=== PATIENT | female | born 1970 | race Caucasian/White ===

== ENCOUNTER 2016-07-31 19:01 | Emergency (ER) ==
--- NOTE | 2016-07-31 20:07 | PROVIDER DOCUMENTATION ---
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 PT STATES WEAKNESS AND NAUSEA WITH NO VOMITING.PT STATES TODAY SX HAVE BEEN PRESENT ALL DAY. PT STATES SHE DID HAVE A ALLERGY SHOT YESTERDAY AROUND 16:30. PT STATES SHE HAS HAD THE SHOT BEFORE WITH NO PROBLEMS. Location of Pain/Injury: reports: generalized Pain Radiation: reports: no radiation Quality of Pain: reports: pressure (HEAVY CHEST) Severity: reports: moderate Onset/Duration: reports: 24 hours ago Timing: reports: still present Context/Activities at Onset: reports: none Modifying Factors: improves with: nothing Associated Symptoms: reports: anxiety, other (HEAVINESS OF CHEST) Similar Symptoms Previously?: No Recently seen or treated by another doctor?: No <Isidro Herrmann - Last Filed: 07/31/16 21:09> <Chivo Doshi - Last Filed: 07/31/16 21:57> - General Chief Complaint: Weakness Stated Complaint: WEAKNESS, DIZZY, NAUSEA Time Seen by Provider: 07/31/16 19:35 Allergies/Adverse Reactions: Patient Allergies Allergy/AdvReac Type Severity Reaction Status Date / Time acetaminophen [From Lortab] AdvReac SHORTNESS Verified 12/24/15 15:41 OF BREATH celecoxib [From Celebrex] AdvReac Unknown Verified 12/24/15 15:41 hydrocodone bitartrate * AdvReac SHORTNESS Verified 12/24/15 15:41 [From Lortab] OF BREATH prednisone AdvReac Unknown Verified 12/24/15 15:41 Tetracyclines AdvReac SHORTNESS Verified 12/24/15 15:41 OF BREATH Home Medications: Home Medication List Medication Instructions Recorded Confirmed Last Taken Type Clonazepam [Klonopin] 1 mg PO DIRECTED 03/17/15 07/31/16 12/25/15 07:00 History Cephalexin [Keflex] 500 mg PO BID 07/31/16 07/31/16 Unknown History Review of Systems - Adult - REVIEW OF SYSTEMS - ADULT Constitutional: denies: chills, fever Eyes: reports: no symptoms reported Ears, Nose, Mouth & Throat: reports: no symptoms reported Cardiovascular: reports: chest pain (HEAVINESS), palpitations. denies: syncope Respiratory: reports: shortness of breath. denies: cough, wheezing Gastrointestinal: reports: nausea. denies: abdominal pain, diarrhea, vomiting Genitourinary: reports: no symptoms reported Musculoskeletal: denies: back pain, neck pain Integumentary: reports: no symptoms reported Neurological: denies: dizziness/vertigo, headache/migraines, syncope Psychiatric: reports: no symptoms reported Endocrine: reports: no symptoms reported Hematologic/Lymphatic: reports: no symptoms reported Allergic/Immunologic: reports: no symptoms reported All Other Systems: Reviewed and Negative <Isidro Herrmann - Last Filed: 07/31/16 21:09> Past History - Adult - PAST MEDICAL HISTORY-ADULT Review of Records: reports: Nursing Assessment Review, Medications Reviewed Gastrointestinal: reports: GERD Genitourinary: reports: dialysis Endocrine/Immune: reports: thyroid disorder - PRIOR SURGERIES/PROCEDURES Surgical/Procedure History: reports: reviewed, not pertinent - IMMUNIZATION STATUS Childhood Immunizations: See Nurse Assessment Flu Vaccine: See Nurse Assessment - FAMILY HISTORY Family History: reviewed, not pertinent - SOCIAL HISTORY Smoking: quit greater than 1 year, cigarettes Substance Use: alcohol Alcohol Use Frequency: occasionally Number of drinks per typical drinking period:: 3-4 drinks Living Situation: family <Isidro Herrmann Last Filed: 07/31/16 21:09> Physical Exam-General - CONSTITUTIONAL General Appearance: alert, mild distress - EYES Eyes: PERRL/EOMI, pink conjunctivae - HEAD, EARS, NOSE, MOUTH & THROAT HENMT: normocephalic/atraumatic, moist mucous membranes - NECK Neck: non-tender, full range of motion, supple - RESPIRATORY Respiratory: chest non-tender, lungs clear, normal breath sounds - CARDIOVASCULAR Cardiovascular: normal peripheral pulses, regular rate, rhythm - GASTROINTESTINAL (ABDOMEN) Abdominal Exam: normal bowel sounds, non tender, soft - LYMPHATIC Lymphatic: no adenopathy - MUSCULOSKELETAL Back Exam: normal inspection, no CVA tenderness, no vertebral tenderness Extremity: normal range of motion, non-tender - SKIN Integumentary: normal color, normal turgor, warm/dry - NEUROLOGIC Neurologic: grossly normal - PSYCHIATRIC Psych/Mental Status: oriented x 3 <MontezIsidro - Last Filed: 07/31/16 21:09> Progress - PLAN OF CARE/RESULTS Progress/Plan/Lab Results: Laboratory Tests 07/31/16 07/31/16 07/31/16 20:15 20:15 20:15 WBC 6.35 RBC 4.71 Hgb 14.4 Hct 43.1 MCV 91.5 MCH 30.6 MCHC 33.4 RDW Std Deviation 13.2 Plt Count 292 MPV 9.8 Immature Gran % (Auto) 0.0 Neut % (Auto) 57.8 Lymph % (Auto) 27.9 [place] % (Auto) 10.7 H Eos % (Auto) 2.2 Baso % (Auto) 1.4 H Immature Gran # (Auto) 0.00 Neut # (Auto) 3.67 Lymph # (Auto) 1.77 [place] # (Auto) 0.68 H Eos # (Auto) 0.14 Baso # (Auto) 0.09 PT INR PTT (Actin FS) D-Dimer 0.26 Sodium 143 Potassium 3.7 Chloride 105 Carbon Dioxide 29 Anion Gap 9 BUN 17 Creatinine 0.7 Estimated GFR/1.73 m2 > 60 BUN/Creatinine Ratio 24 Glucose 90 Calculated Osmolality 286 Calcium 9.0 Magnesium 2.1 Total Bilirubin 0.26 AST 18 ALT 15 Alkaline Phosphatase 120 H Creatine Kinase 79 Troponin T Wly-N-Vfcfzfhfrqs Pept Total Protein 7.1 Albumin 4.0 Globulin 3.1 Albumin/Globulin Ratio 1.3 07/31/16 07/31/16 07/31/16 20:15 20:15 20:15 WBC RBC Hgb Hct MCV MCH MCHC RDW Std Deviation Plt Count MPV Immature Gran % (Auto) Neut % (Auto) Lymph % (Auto) [place] % (Auto) Eos % (Auto) Baso % (Auto) Immature Gran # (Auto) Neut # (Auto) Lymph # (Auto) [place] # (Auto) Eos # (Auto) Baso # (Auto) PT 9.9 INR 0.97 PTT (Actin FS) 25.1 D-Dimer Sodium Potassium Chloride Carbon Dioxide Anion Gap BUN Creatinine Estimated GFR/1.73 m2 BUN/Creatinine Ratio Glucose Calculated Osmolality Calcium Magnesium Total Bilirubin AST ALT Alkaline Phosphatase Creatine Kinase Troponin T < 0.010 Sry-L-Dorodfwqzsv Pept 119 Total Protein Albumin Globulin Albumin/Globulin Ratio Orders Category Date Time Status Cardiac Monitoring DIRECTED Care 07/31/16 19:58 Active Saline Loc NOW Care 03/09/17 19:58 Active CHEST-2 VIEWS [RAD] Stat Exams 07/31/16 19:58 Taken CBC WITH ELECTRONIC DIFF [HEME] Stat Lab 07/31/16 20:15 Completed CK PROFILE [SP CHEM] Stat Lab 07/31/16 20:15 Completed COMPREHENSIVE METABOLIC PANEL [CHEM] Stat Lab 07/31/16 20:15 Completed D-DIMER [CHEM] Stat Lab 07/31/16 20:15 Completed MAGNESIUM [CHEM] Stat Lab 07/31/16 20:15 Completed PRO B-NATRIURETIC PEPTIDE Stat Lab 07/31/16 20:15 Completed PROTIME WITH INR [COAG] Stat Lab 07/31/16 20:15 Completed PTT [COAG] Stat Lab 07/31/16 20:15 Completed TROPONIN T Stat Lab 07/31/16 20:15 Completed 0.9% Sodium Chloride Inj [Ns] 1,000 ml Med 07/31/16 20:24 Active IV 999 mls/hr EKG [EKG] Stat Ther 07/31/16 19:18 Ordered Vital Signs - 24 hr 07/31/16 19:13 Temperature 97.8 F Pulse Rate 62 Respiratory 16 Rate Blood Pressure 124/60 O2 Sat by Pulse 100 Oximetry - EKG 1 Time of EKG reading by physician:: 19:31 EKG Read and Signed by:: Sourav Crenshaw EKG Interpretation (*Must complete 3 of following elements*): Normal Rate: 61 Rhythm: NSR [place]: normal QRS: normal IA Interval: normal ST Wave: normal - XRAY 1 XRAY: Bilateral XRAY Study: Chest XRAY Interpretation: NAD <Isidro Herrmann - Last Filed: 07/31/16 21:09> - PLAN OF CARE/RESULTS Progress/Plan/Lab Results: Laboratory Tests 07/31/16 07/31/16 07/31/16 20:15 20:15 20:15 WBC 6.35 RBC 4.71 Hgb 14.4 Hct 43.1 MCV 91.5 MCH 30.6 MCHC 33.4 RDW Std Deviation 13.2 Plt Count 292 MPV 9.8 Immature Gran % (Auto) 0.0 Neut % (Auto) 57.8 Lymph % (Auto) 27.9 [place] % (Auto) 10.7 H Eos % (Auto) 2.2 Baso % (Auto) 1.4 H Immature Gran # (Auto) 0.00 Neut # (Auto) 3.67 Lymph # (Auto) 1.77 [place] # (Auto) 0.68 H Eos # (Auto) 0.14 Baso # (Auto) 0.09 PT INR PTT (Actin FS) D-Dimer 0.26 Sodium 143 Potassium 3.7 Chloride 105 Carbon Dioxide 29 Anion Gap 9 BUN 17 Creatinine 0.7 Estimated GFR/1.73 m2 > 60 BUN/Creatinine Ratio 24 Glucose 90 Calculated Osmolality 286 Calcium 9.0 Magnesium 2.1 Total Bilirubin 0.26 AST 18 ALT 15 Alkaline Phosphatase 120 H Creatine Kinase 79 Troponin T Fwb-W-Mjcnyifufon Pept Total Protein 7.1 Albumin 4.0 Globulin 3.1 Albumin/Globulin Ratio 1.3 07/31/16 07/31/16 07/31/16 20:15 20:15 20:15 WBC RBC Hgb Hct MCV MCH MCHC RDW Std Deviation Plt Count MPV Immature Gran % (Auto) Neut % (Auto) Lymph % (Auto) [place] % (Auto) Eos % (Auto) Baso % (Auto) Immature Gran # (Auto) Neut # (Auto) Lymph # (Auto) [place] # (Auto) Eos # (Auto) Baso # (Auto) PT 9.9 INR 0.97 PTT (Actin FS) 25.1 D-Dimer Sodium Potassium Chloride Carbon Dioxide Anion Gap BUN Creatinine Estimated GFR/1.73 m2 BUN/Creatinine Ratio Glucose Calculated Osmolality Calcium Magnesium Total Bilirubin AST ALT Alkaline Phosphatase Creatine Kinase Troponin T < 0.010 Wkz-J-Attebioinrp Pept 119 Total Protein Albumin Globulin Albumin/Globulin Ratio Orders Category Date Time Status Cardiac Monitoring DIRECTED Care 07/31/16 19:58 Active Saline Loc NOW Care 07/31/16 19:58 Active CHEST-2 VIEWS [RAD] Stat Exams 07/31/16 19:58 Taken CBC WITH ELECTRONIC DIFF [HEME] Stat Lab 07/31/16 20:15 Completed CK PROFILE [SP CHEM] Stat Lab 07/31/16 20:15 Completed COMPREHENSIVE METABOLIC PANEL [CHEM] Stat Lab 07/31/16 20:15 Completed D-DIMER [CHEM] Stat Lab 07/31/16 20:15 Completed MAGNESIUM [CHEM] Stat Lab 07/31/16 20:15 Completed PRO B-NATRIURETIC PEPTIDE Stat Lab 07/31/16 20:15 Completed PROTIME WITH INR [COAG] Stat Lab 07/31/16 20:15 Completed PTT [COAG] Stat Lab 07/31/16 20:15 Completed TROPONIN T Stat Lab 07/31/16 20:15 Completed 0.9% Sodium Chloride Inj [Ns] 1,000 ml Med 07/31/16 20:24 Discontinued IV 999 mls/hr EKG [EKG] Stat Ther 07/31/16 19:18 Ordered Vital Signs Temp Pulse Resp BP Pulse Ox 07/31/16 19:13 97.8 F 62 16 124/60 100 acetaminophen [From Lortab] Adverse Reaction (Verified 12/24/15 15:41) SHORTNESS OF BREATH night terrors celecoxib [From Celebrex] Adverse Reaction (Verified 12/24/15 15:41) Unknown "increased heart rate" hydrocodone bitartrate * [From Lortab] Adverse Reaction (Verified 12/24/15 15:41 ) SHORTNESS OF BREATH night terrors prednisone Adverse Reaction (Verified 12/24/15 15:41) Unknown "nearly fainted off a shot one time. Steroids don't do me well" Tetracyclines Adverse Reaction (Verified 12/24/15 15:41) SHORTNESS OF BREATH "shortness of breath, night terrors" Clonazepam [Klonopin] 1 mg PO DIRECTED 03/17/15 Cephalexin [Keflex] 500 mg PO BID 07/31/16 Laboratory 07/31/16 07/31/16 07/31/16 20:15 20:15 20:15 WBC RBC Hgb Hct MCV MCH MCHC RDW Std Deviation Plt Count MPV Immature Gran % (Auto) Neut % (Auto) Lymph % (Auto) [place] % (Auto) Eos % (Auto) Baso % (Auto) Immature Gran # (Auto) Neut # (Auto) Lymph # (Auto) [place] # (Auto) Eos # (Auto) Baso # (Auto) PT 9.9 INR 0.97 PTT (Actin FS) 25.1 D-Dimer Sodium Potassium Chloride Carbon Dioxide Anion Gap BUN Creatinine Estimated GFR/1.73 m2 BUN/Creatinine Ratio Glucose Calculated Osmolality Calcium Magnesium Total Bilirubin AST ALT Alkaline Phosphatase Creatine Kinase Troponin T < 0.010 Jqy-M-Prjouehjqxk Pept 119 Total Protein Albumin Globulin Albumin/Globulin Ratio 07/31/16 07/31/16 07/31/16 20:15 20:15 20:15 WBC 6.35 RBC 4.71 Hgb 14.4 Hct 43.1 MCV 91.5 MCH 30.6 MCHC 33.4 RDW Std Deviation 13.2 Plt Count 292 MPV 9.8 Immature Gran % (Auto) 0.0 Neut % (Auto) 57.8 Lymph % (Auto) 27.9 [place] % (Auto) 10.7 H Eos % (Auto) 2.2 Baso % (Auto) 1.4 H Immature Gran # (Auto) 0.00 Neut # (Auto) 3.67 Lymph # (Auto) 1.77 [place] # (Auto) 0.68 H Eos # (Auto) 0.14 Baso # (Auto) 0.09 PT INR PTT (Actin FS) D-Dimer 0.26 Sodium 143 Potassium 3.7 Chloride 105 Carbon Dioxide 29 Anion Gap 9 BUN 17 Creatinine 0.7 Estimated GFR/1.73 m2 > 60 BUN/Creatinine Ratio 24 Glucose 90 Calculated Osmolality 286 Calcium 9.0 Magnesium 2.1 Total Bilirubin 0.26 AST 18 ALT 15 Alkaline Phosphatase 120 H Creatine Kinase 79 Troponin T Mzf-S-Grnphlxcyro Pept Total Protein 7.1 Albumin 4.0 Globulin 3.1 Albumin/Globulin Ratio 1.3 <Chivo Doshi - Last Filed: 07/31/16 21:57> Departure <Isidro Herrmann - Last Filed: 07/31/16 21:09> - Departure Time of Disposition Order: 21:56 Certified Medical Emergency: Emergent <Chivo Doshi - Last Filed: 07/31/16 21:57> - Departure DIAGNOSIS: Palpitations, Anxiety Disposition: HOME 01 Condition: Stable Additional Instructions: ED Follow Up Instructions: You have been treated by a care provider in the Emergency Department. These instructions are being provided to you so you can have an understanding of how to care for yourself upon discharge. Upon discharge from the Emergency Department, you are responsible for making arrangements for follow-up care by a physician of your choice. Take all prescribed medications as directed. Return to the Emergency Department immediately for any new or worsening symptoms. You may call the Physician Referral phone number at [phone] to obtain a list of Physicians who are taking new patients. Referrals: None,PCP [Primary Care Provider] - Attestation - Scribe Verification/Attestation Scribe:: Isidro Herrmann Acting as Scribe for:: Chivo A. Chamness Scribe documention review:: This chart was documented by a scribe and accurately reflects the service the provider performed and the decisions made by the provider. <Isidro Herrmann - Last Filed: 07/31/16 21:09> Physician Attestation
[2016-07-31 20:23] LABS: MANUAL DIFF NEEDED? NO
[2016-07-31 20:24] LABS: BASO% 1.4 % (0.0-0.8); EOS# 0.14 X1000 (0.0-0.7); EOS% 2.2 % (0.0-10.0); HEMATOCRIT 43.1 % (37.0-47.0); HEMOGLOBIN 14.4 g/dL (12.0-16.0); LYMPH# 1.77 X1000 (1.2-3.4); LYMPH% 27.9 % (20.5-51.1); MCH 30.6 PG (27-31); MCHC 33.4 g/dL (33-37); MCV 91.5 FL (81-99); MONO# 0.68 X1000 (0.11-0.59); MONO% 10.7 % (1.7-9.3); MPV 9.8 FL (7.4-10.4); NEUT% 57.8 % (42.2-75.2); PLT 292 X1000 (130-400); RBC 4.71 XMIL (4.2-5.4)
[2016-07-31] MEDS ORDERED: NS 1,000 ML IV ONE (20:24)
[2016-07-31 20:42] LABS: AGAP 9; ALKALINE PHOSPHATASE 120 U/L (32-104); BUN 17 mg/dL (8-22); CHLORIDE 105 mmol/L (98-107); CK PROFILE 79 U/L (24-173); COSMO 286; GOT 18 U/L (10-30); GPT 15 U/L (10-36); MAGNESIUM 2.1 mg/dL (1.5-2.7); POTASSIUM 3.7 mmol/L (3.5-5.1); SODIUM 143 mmol/L (136-145); TCO2 29 mmol/L (25-35); TOTAL BILIRUBIN 0.26 mg/dL (0.20-1.00); TOTAL PROTEIN 7.1 g/dL (6.3-8.3)
[2016-07-31 20:47] LABS: INR 0.97; PROTIME 9.9 Seconds (9.2-11.7); PTT 25.1 Seconds (22.0-36.0)
[2016-07-31 22:19] VITALS: BP 97/59
--- NOTE | 2016-08-01 06:02 | EKG Report ---
Test Performed on : 07/31/2016 7:30:28 PM Test Reason : weakness Blood Pressure : / mmHG Vent. Rate : 061 BPM Atrial Rate : 061 BPM P-R Int : 152 ms QRS Dur : 096 ms QT Int : 428 ms P-R-T Axes : 053 052 056 degrees QTc Int : 430 ms Normal sinus rhythm. Normal ECG When compared with ECG of 17-MAR-2015 10:20, No significant change was found Unconfirmed Result
--- NOTE | 2016-08-01 07:34 | Diag Imaging Result Document ---
PROCEDURE NAME: CHEST-2 VIEWS - 07/31/2016 FRONTAL AND LATERAL CHEST, TWO VIEWS: COMPARISON: 08/25/2015. FINDINGS: The lungs are well expanded. The heart is not enlarged. The vessels are not distended. No pneumonia. No pleural effusions. No free air beneath the diaphragm. There is bilateral nipple jewelry. IMPRESSION: No acute abnormality.
== END 2016-07-31 22:55 | disposition home or self-care (01) ==
LOC: ED 19:01
DX: R00.2 Palpitations (principal); F41.9 Anxiety disorder, unspecified; R53.83 Other fatigue; R53.1 Weakness; R11.0 Nausea; R07.89 Other chest pain; R42 Dizziness and giddiness; R06.02 Shortness of breath; Z79.899 Other long term (current) drug therapy; Z99.2 Dependence on renal dialysis; Z87.891 Personal history of nicotine dependence
CPT/HCPCS: 36415; 71020; 80053; 82550; 82948; 83735; 83880; 84484; 85025; 85379; 85610; 85730; 93005; 99284; J7030